=== PATIENT | male | born 1990 | race Two or more races ===

== ENCOUNTER 2023-05-10 10:20 | Emergency (ER) | payer SELFPAY ==
[~2023-05-10] VITALS: Ht 177.8 cm; Wt 80.4 kg
[2023-05-10] MEDS ORDERED: SODIUM CHLORIDE 0.9% 1,000 ML IV ONE (10:30)
[2023-05-10 10:45] LABS: Basophils # (auto) 0 10 ^3/uL (0-0.2); Basophils % (auto) 0.5 % (0.0-2.0); Eosinophils # (auto) 0 10 ^3/uL (0-0.8); Eosinophils % (auto) 0.1 % (0.0-7.0); Hematocrit 45.9 % (41.0-53.0); Hemoglobin 15.3 g/dL (13.5-17.5); Lymphocytes # (auto) 0.6 10 ^3/uL (0.4-5.4); Lymphocytes % (auto) 11.9 % (10.0-50.0); Mean Corpuscular Hemoglobin 27.7 pg (28.0-32.0); Mean Corpuscular Hgb Conc. 33.4 g/dL (32.0-36.0); Mean Corpuscular Volume 82.9 fL (80.0-100.0); Monocytes # (auto) 0.2 10 ^3/uL (0-1.3); Monocytes % (auto) 3.1 % (0.0-12.0); Neutrophils # (auto) 4.3 10 ^3/uL (1.6-8.6); Neutrophils % (auto) 84.4 % (37.0-80.0); Nucleated Red Blood Cells % 0.1 %; Red Blood Cells 5.53 10^6/uL (4.5-5.90); Red Cell Distribution Width 13.7 % (11.8-14.3); White Blood Cell 5.1 10^3/uL (4.4-10.8)
[2023-05-10 11:49] LABS: Albumin 4.9 g/dL (3.2-4.8); Alkaline Phosphatase 81 U/L (46-116); Anion Gap 7.5 (5-15); Aspartate Aminotransferase 9 U/L (13-40); BUN/Creatinine Ratio 5.9 (10.0-20.0); Blood Alcohol < 3.0 mg/dL (<10); Blood Urea Nitrogen 6 mg/dL (9-23); Calcium 9.4 mg/dL (8.7-10.4); Carbon Dioxide 24.5 mmol/L (20-30); Chloride 109 mmol/L (98-107); Glucose 144 mg/dL (74-106); Potassium 3.5 mmol/L (3.5-5.1); Sodium 141 mmol/L (136-145)
[2023-05-10 11:50] LABS: Bilirubin, Total 1.8 mg/dL (0.2-1.0); Total Protein 8.1 g/dL (5.7-8.2)
[2023-05-10 12:03] LABS: Urine Bacteria NONE SEEN /hpf (None Seen); Urine Blood Negative /uL (Negative); Urine Clarity HAZY (Clear); Urine Color Yellow (Yellow); Urine Mucus MANY (None Seen); Urine Protein, UAD 1+ (Negative); Urine Specific Gravity 1.034 (1.001-1.035); Urine WBC 6 /hpf (0 - 3); Urine pH 6.5 (5.0-8.0)
[2023-05-10 12:15] LABS: Alanine Aminotransferase < 9 U/L (7-40)
[2023-05-10 13:13] VITALS: BP 99/61; PULSE 75; RESP 18; TEMP 97.6; O2SAT 98
[2023-05-10 13:33] LABS: Amphetamine Screen, Urine Neg (NEGATIVE)
[2023-05-10 13:36] LABS: Barbiturate Scree,Urine Neg (NEGATIVE); Benzodiazephine Screen, Urine Neg (NEGATIVE); Cannabinoid Screen, Urine Pos (NEGATIVE); Cocaine Screen, Urine Neg (NEGATIVE); Opiate Scree,Urine Neg (NEGATIVE); Phencyclidine Screen, Urine Neg (NEGATIVE)
[2023-05-11] MEDS ORDERED: HYDR50CA PO (08:44)
[2023-05-11] MEDS ORDERED: ZOFR4T PO (08:44)
== END 2023-05-10 13:15 | disposition home or self-care (01) ==
LOC: ER 10:20
DX: F12.90 Cannabis use, unspecified, uncomplicated (principal)
CPT/HCPCS: 36415; 80053; 80307; 80320; 81001; 85025; 96360; 99284; J7030

== ENCOUNTER 2023-05-11 07:04 | Emergency (ER) | payer SELFPAY ==
[~2023-05-11] VITALS: Ht 177.8 cm; Wt 80.6 kg
[2023-05-11] MEDS ORDERED: HYDR50CA PO (08:44)
[2023-05-11] MEDS ORDERED: ZOFR4T PO (08:44)
[2023-05-11] MEDS ORDERED: diphenhdrAMINE HCL 50 MG/1 ML VL IM ONE (08:45)
[2023-05-11] MEDS ORDERED: ONDANSETRON ODT 4 MG TAB PO ONE (08:45)
[2023-05-11 08:47] VITALS: BP 110/89; PULSE 88; RESP 18; O2SAT 100
== END 2023-05-11 08:49 | disposition home or self-care (01) ==
LOC: ER 07:04
DX: F12.93 Cannabis use, unspecified with withdrawal (principal); R11.0 Nausea; R63.0 Anorexia; G47.00 Insomnia, unspecified; Z79.899 Other long term (current) drug therapy
CPT/HCPCS: 96372; 99283; J1200; Q0162